=== PATIENT | male | born 1965 | race African-American/Black ===

== ENCOUNTER 2017-09-29 23:24 | Emergency (ER) | payer OTHER ==
[~2017-09-29] VITALS: Ht 175.3 cm; Wt 95.0 kg
[2017-09-29 23:27] VITALS: BP 115/73
== END 2017-09-30 00:05 | disposition left against medical advice (07) ==
LOC: ER 23:24
DX: M54.5 Low back pain (principal); M25.561 Pain in right knee; M25.562 Pain in left knee; Z53.21 Procedure and treatment not carried out due to patient leaving prior to being seen by health care provider; W01.0XXA Fall on same level from slipping, tripping and stumbling without subsequent striking against object, initial encounter; Y93.89 Activity, other specified; Y92.89 Other specified places as the place of occurrence of the external cause; Y99.8 Other external cause status